=== PATIENT | male | born 1975 | race Caucasian/White ===

== ENCOUNTER 2023-11-08 13:03 | Emergency (ER) | payer OTHER, SELFPAY ==
[2023-11-08 13:05] VITALS: BP 123/72; BMI 30.2
[2023-11-08 13:22] LABS: % Basophils 1.3 % (0-2); % Eosinophils 2.9 % (0-6); % Immature Granulocytes 2.3 % (0-0.5); % Lymphocytes 29.9 % (20.5-51.1); % Monocytes 10.3 % (1.7-9.3); % Neutrophils 53.3 % (42.2-75.2); Absolute Eosinophils 0.1 10^3/uL (0-0.7); Absolute Immature Granulocytes 0.1 10^3/uL (0-0.05); Absolute Lymphocytes 0.9 10^3/uL (1.2-3.4); Absolute Monocytes 0.3 10^3/uL (0.1-0.6); Absolute Neutrophils 1.7 10^3/uL (1.4-6.5); Hemoglobin 13.8 g/dL (13.0-18.0); Mean Corp Hgb Conc. 33.7 g/dL (33.0-37.0); Mean Corpuscular Hgb 32.9 pg (27.0-31.0); Mean Corpuscular Volume 97.6 fL (80.0-94.0); Mean Platelet Volume 10.7 fL (7.4-10.4); Nucleated Red Blood Cells % 0 % (-); Platelet Count 82 10^3/uL (130-400); Red Cell Dist. Width 12.4 % (11.5-14.5); White Blood Cell Count 3.1 10^3/uL (4.8-10.8)
--- NOTE | 2023-11-08 13:37 | ED.GENMED ---
History of Present Illness
General
Chief Complaint: Seizure
Time Seen by Provider: 11/08/23 13:06
History of Present Illness
History of Present Illness:
48-year-old male with history of alcohol abuse and hypertension presents to the emergency department for evaluation of a seizure-like event that occurred at home. He was apparently lying on his couch, the patient's children noted that he fell off
the couch and when the found him he was leaned over the front of the couch and making 'gurgling noises'. There is a period of confusion after the event and it took approximately 5 to 10 minutes for him to regain awareness. Patient does not
recall this event at all. He does admit to daily alcohol use, roughly 1-1/2 bottles of wine. No recent fevers or chills. Denies any illicit substance use. He was also apparently incontinent of urine
Past History
Past History
ED Past Medical History: GERD, HTN and Psychiatric
Social History
Tobacco: Non-smoker
Personal:
Living: with family
Employment: Employed
Family History
Family History: Other
Review of Systems
Review of Systems
Allergies reviewed?: Yes
All Other Systems: ROS reviewed and negative except as documented in HPI and ROS
Phy Exam
Physical Exam
Physical Exam:
GEN: Well appearing, NAD, WDWN
HEENT: Oral mucosa moist, no scleral icterus. Wound to the left mid tongue biting
Cardiac: Mildly tachycardic, regular
Lung: No respiratory distress, no tachypnea, lungs clear to auscultation bilaterally
Abdomen: Soft, nontender
MSK: No gross deformity or injuries
Skin: Good color, no pallor or jaundice, no rashes
Neuro: AO x3, moves all extremities freely, cranial nerves II through XII grossly intact, bilateral upper and lower extremity strength and sensation is intact in all candelario
Psych: Calm, cooperative
Course
Orders/Labs/Results
Orders:
Orders
06/20/24 13:04
Electrocardiogram (*1) Urgent
Reason for Study: Chest Pain
Cardiac Monitoring- Treatment ONCE
EKG- Treatment ONCE
IV Insert/Care/Rem.- Treatment PRN
O2 Therapy [RESP] Urgent
Titrate/Wean O2 to maintain O2 sat greater than (%): 90
Special Instructions: Maintain sats >/=90%
Pulse Ox/spot Check [RESP] Urgent
Quantity: 1
Special Instructions: ON ROOM AIR
11/08/23 13:06
Alcohol Urgent
Complete Blood Count/With Diff Urgent
Comprehensive Metabolic Panel Urgent
Abnormal Lab Results
11/08/23
13:06
WBC 3.1 L 10^3/uL
(4.8-10.8)
RBC 4.20 L 10^6/uL
(4.70-6.10)
MCV 97.6 H fL
(80.0-94.0)
MCH 32.9 H pg
(27.0-31.0)
Plt Count 82 L 10^3/uL
(130-400)
MPV 10.7 H fL
(7.4-10.4)
Abs Immat Gran (auto) 0.1 H 10^3/uL
(0-0.05)
Absolute Lymphs (auto) 0.9 L 10^3/uL
(1.2-3.4)
Immature Gran % 2.3 H %
(0-0.5)
Monocytes % 10.3 H %
(1.7-9.3)
Glucose 169 H mg/dl
(70-99)
AST 194 H U/L
(17-59)
ALT 123 H U/L
(0-50)
11/08/23 13:06
11/08/23 13:06
Vital Signs
Initial and Last Documented VS:
Initial Vital Signs
Temp Pulse Resp BP Pulse Ox
99.1 F 97 20 123/72 98
11/08/23 13:05 11/08/23 13:05 11/08/23 13:05 11/08/23 13:05 11/08/23 13:05
Last Documented Vital Signs
Temp Pulse Resp BP Pulse Ox
99.1 F 97 23 128/92 97
11/08/23 13:05 11/08/23 15:45 11/08/23 15:45 11/08/23 15:00 11/08/23 15:45
MDM/Problems Addressed
MDM/Problems Addressed:
Patient is clinically well returned to baseline in the emergency department with no further seizure activity. He is neurologically intact with no focal deficits. I suspect this was a seizure provoked by alcohol misuse particular given that he did
not drink today. He does not show signs of obvious withdrawal otherwise at this time with stable vitals and no tremors or diaphoresis. Labs are reassuring. Was seen by Levi simpson will help facilitate outpatient alcohol detox program. Provided with
Librium taper for ongoing management of alcohol symptoms at home. [employer] seizure reporting form was filed and patient is advised to not swim without supervision and discontinue all driving until further follow-up. Given lack of return of seizure
activity and normal neurologic status did not see indication for CT of the head
*Critical Care Note
Total Time (30-74mins, 75-104mins- exclusive of procedures): Not Applicable
ED Attending Note
-
Portions of this chart may have been created with voice recognition software.� Occasional wrong word or��sound alike� substitutions may have occurred due to the inherent limitations of voice recognition software.
Discharge Plan
Departure
Patient Disposition: Home (Routine Discharge)
Date of Disposition: 11/08/23
Time of Disposition: 15:44
Patient with high blood pressure during this ER visit?: No
Discharge Problem:
Seizure, Alcohol use disorder
Instructions: Alcohol Use Disorder (DC), Seizures, Adult ED
Prescriptions:
New
chlordiazepoxide HCl 25 mg capsule
25 mg PO ONCE Qty: 24 0RF
Rx Instructions:
50mg PO q8h x 2d, then 25mg PO q8h x 2d, then 25mg PO 8h PRN withdrawal symptoms
No Action
alprazolam 0.5 MG tablet
0.5 mg PO BIDPRN PRN (Reason: anxiety)
losartan 25 MG tablet
25 mg PO DAILY
lansoprazole [Prevacid] 15 MG capsule,delayed release(DR/EC)
15 mg PO DAILY
escitalopram oxalate 20 MG tablet
20 mg PO DAILY
Referrals:
Dangelo Singh MD [Active] -
Giovany Carnes DO [Family Provider] -
Activity Restrictions/Additional Instructions:
NO SWIMMING WITHOUT SUPERVISION
Avoid driving until neurology follow up
Plan to follow up with [facility] alcohol rehab [facility]
Interventions
Interventions:
*Risk Screen - Suicide Last Done: 11/08/23 13:05
*General Assessment Last Done: 11/08/23 13:05
*Neglect/Abuse Screening Last Done: 11/08/23 13:05
ED- Fall Risk Assessment Last Done: 11/08/23 13:22
*Nursing Disposition Last Done: 11/08/23 15:57
ED- Cardiac Assessment Last Done: 11/08/23 13:22
ED- Neurological Assessment Last Done: 11/08/23 13:22
ED- Pulmonary Assessment Last Done: 11/08/23 13:22
Discharge Date and Time
Discharge Date/Time: 11/08/23 16:07
Print Language: SLOVENIAN
[2023-11-08 13:51] LABS: ALT (SGPT) 123 U/L (0-50); AST (SGOT) 194 U/L (17-59); Albumin 4.4 g/dl (3.5-5.0); Alkaline Phosphatase 82 U/L (38-126); Blood Urea Nitrogen 11 mg/dl (9-20); Calcium 9.5 mg/dl (8.4-10.2); Carbon Dioxide 22 mmol/L (22-30); Chloride 105 mmol/L (98-107); Estimated Creatinine Clearance 123 ml/min; Glucose 169 mg/dl (70-99); Potassium 4.2 mmol/L (3.5-5.1); Sodium 140 mmol/L (135-145); Total Bilirubin 1.3 mg/dl (0.2-1.3); Total Protein 7.6 g/dl (6.3-8.2); eGFR > 60.00
[2023-11-08 13:53] LABS: Alcohol None Detected
[2023-11-08 14:00] VITALS: BP 116/77
[2023-11-08 15:00] VITALS: BP 128/92
== END 2023-11-08 16:07 | disposition home or self-care (01) ==
LOC: EMR 13:03
PROVIDERS: EMERGENCY PHYSICIAN Emergency Medicine; FAMILY PHYSICIAN Family Medicine
DX: G40.909 Epilepsy, unspecified, not intractable, without status epilepticus (principal); I10 Essential (primary) hypertension; F10.10 Alcohol abuse, uncomplicated; K21.9 Gastro-esophageal reflux disease without esophagitis
CPT/HCPCS: 99283; 80053; 82077; 85025; 93005